=== PATIENT | female | born 1945 | race Hispanic/Latino ===

== ENCOUNTER 2021-08-07 12:29 | Emergency (ER) | payer MEDICARE, BC ==
[~2021-08-07] VITALS: Ht 157.5 cm; Wt 55.8 kg
[~2021-08-07 12:29] MED LIST: ADVAIR 100-501 EACH INH; DIOVAN40 MG; METOPROLOL SUCC50 MG PO; OXYBUTYNIN CHLOR5 MG PO; PANTOPRAZOLE SO20 MG PO; WELCHOL625 MG PO
== END 2021-08-07 15:21 | disposition home or self-care (01) ==
LOC: ER 12:45
DX: S93.401A Sprain of unspecified ligament of right ankle, initial encounter (principal); X50.1XXA Overexertion from prolonged static or awkward postures, initial encounter; Y93.01 Activity, walking, marching and hiking; Y92.008 Other place in unspecified non-institutional (private) residence as the place of occurrence of the external cause; K21.9 Gastro-esophageal reflux disease without esophagitis; Z87.19 Personal history of other diseases of the digestive system
CPT/HCPCS: 99283

== ENCOUNTER → 2021-11-18 | Outpatient (CLI) | payer MEDICARE, BC | LOC: LAB 09:18 | PROVIDERS: ATTEND Physician Assistant Surgical | DX: C73 Malignant neoplasm of thyroid gland (principal); Z20.822 Contact with and (suspected) exposure to COVID-19 ==

== ENCOUNTER → 2021-12-10 | Outpatient (CLI) | payer MEDICARE, BC | LOC: LAB 09:01 | PROVIDERS: ATTEND Physician Assistant Surgical | DX: C73 Malignant neoplasm of thyroid gland (principal) | CPT/HCPCS: 0223U; 36415 ==

== ENCOUNTER 2024-04-06 12:54 | Emergency (ER) | payer MEDICARE, BC ==
[~2024-04-06] VITALS: Ht 157.5 cm; Wt 55.8 kg
[2024-04-06 15:06] VITALS: PULSE 74; RESP 17; TEMP 98.9; O2SAT 100
[2024-04-06 15:40] LABS: CLARITY,URINE CLEAR (CLEAR); COLOR,URINE YELLOW (YELLOW); LEUKOCYTE ESTERASE ,URINE TRACE (NEGATIVE); NITRITE,URINE NEGATIVE (NEGATIVE); PH,URINE 7 (5 - 7)
[2024-04-06 15:41] LABS: BILIRUBIN,URINE NEGATIVE (NEGATIVE); GLUCOSE, URINE NEGATIVE (NEGATIVE); KETONES,URINE NEGATIVE (NEGATIVE); PROTEIN,URINE DIPSTICK NEGATIVE (NEGATIVE); URINE UROBILINOGEN 0.2 mg/dL (0.2 - 1)
[2024-04-06] MEDS: IBUPROFEN 600 MG TAB PO STA (15:50)
[2024-04-06 15:55] LABS: BACTERIA,URINE MANY /HPF; EPITHELIAL CELLS,URINE RARE /LPF; RBC,URINE 0-5 /HPF (0-5); WBC,URINE (MAN) 0-5 /HPF (0-5)
[2024-04-06 16:12] LABS: INFLUENZAE A&B ANTIGEN (RAPID) NEGATIVE (NEGATIVE); RESPIRATORY SYNC. VIRUS NEGATIVE (NEGATIVE)
[2024-04-06] MEDS ORDERED: CEFDINIR300 MG PO (16:23)
== END 2024-04-06 16:25 | disposition home or self-care (01) ==
LOC: ER 14:15
DX: R05.9 Cough, unspecified (principal); B34.9 Viral infection, unspecified; N39.0 Urinary tract infection, site not specified; R53.83 Other fatigue; I10 Essential (primary) hypertension; E78.5 Hyperlipidemia, unspecified; Z11.52 Encounter for screening for COVID-19; Z87.19 Personal history of other diseases of the digestive system
CPT/HCPCS: 0223U; 36415; 81001; 83518; 87070; 87400; 87420; 99283